=== PATIENT | female | born 1965 | race Caucasian/White ===

== ENCOUNTER 2022-10-04 18:28 | Emergency (ER) | payer SELFPAY ==
[~2022-10-04] VITALS: Ht 157.5 cm; Wt 86.4 kg
[2022-10-04 18:33] VITALS: TEMP 97.8
[2022-10-04] MEDS ORDERED: NORCO 325 MG-51 TAB PO (21:14)
[2022-10-04 21:25] VITALS: BP 128/66; PULSE 58
== END 2022-10-04 21:48 | disposition home or self-care (01) ==
LOC: COL.ER 18:28
DX: S52.571A Other intraarticular fracture of lower end of right radius, initial encounter for closed fracture (principal); S52.611A Displaced fracture of right ulna styloid process, initial encounter for closed fracture; V28.49XA Other motorcycle driver injured in noncollision transport accident in traffic accident, initial encounter
CPT/HCPCS: J2704; J3010